=== PATIENT | male | born 1930 | race Asian ===

== ENCOUNTER 2021-05-09 15:15 | Emergency (ER) | payer OTHER ==
[~2021-05-09] VITALS: Ht 172.7 cm; Wt 51.0 kg
[2021-05-09 15:17] VITALS: BP 0/0
== END 2021-05-09 15:17 ==
LOC: ER 15:15
DX: I46.9 Cardiac arrest, cause unspecified (principal); E78.00 Pure hypercholesterolemia, unspecified; I10 Essential (primary) hypertension; Z53.21 Procedure and treatment not carried out due to patient leaving prior to being seen by health care provider; Z98.890 Other specified postprocedural states
CPT/HCPCS: 99285